=== PATIENT | female | born 1995 | race Two or more races ===

== ENCOUNTER 2022-05-02 19:18 | Emergency (ER) | payer MEDICAID ==
[~2022-05-02] VITALS: Ht 157.5 cm; Wt 66.0 kg
[2022-05-02 20:05] LABS: Urine Bacteria NONE SEEN /hpf (None Seen); Urine Blood Negative /uL (Negative); Urine Specific Gravity 1.005 (1.001-1.035); Urine WBC 1 /hpf (0 - 5)
[2022-05-02 20:42] LABS: Albumin 3.8 g/dL (3.4-5.0); BUN/Creatinine Ratio 6.5; Calcium 9.1 mg/dL (8.5-10.1); Potassium 3.6 mmol/L (3.5-5.1)
[2022-05-02 20:45] LABS: Bilirubin, Total 0.4 mg/dL (0.2-1.0)
[2022-05-02 21:10] LABS: Basophils # (auto) 0 10 ^3/uL (0-0.2); Basophils % (auto) 0.2 % (0.0-2.0); Eosinophils # (auto) 0.1 10 ^3/uL (0-0.8); Eosinophils % (auto) 0.5 % (0.0-7.0); Hematocrit 40.3 % (36.0-46.0); Hemoglobin 13.6 g/dL (12.2-16.2); Lymphocytes # (auto) 1.3 10 ^3/uL (0.4-5.4); Mean Corpuscular Hemoglobin 30.4 pg (28.0-32.0); Mean Corpuscular Hgb Conc. 33.7 g/dL (32.0-36.0); Mean Corpuscular Volume 90.1 fL (80.0-100.0); Monocytes # (auto) 0.6 10 ^3/uL (0-1.3); Monocytes % (auto) 5.9 % (0.0-12.0); Neutrophils # (auto) 8.3 10 ^3/uL (1.6-8.6); Neutrophils % (auto) 80.4 % (37.0-80.0); Nucleated Red Blood Cells % 0.1 %; Red Blood Cells 4.47 10^6/uL (4.0-5.20); Red Cell Distribution Width 12.8 % (11.8-14.3); White Blood Cell 10.4 10^3/uL (4.4-10.8)
[2022-05-03] MEDS ORDERED: NITR-87 PO (06:09)
[2022-05-03] MEDS ORDERED: PREN-96 PO (06:09)
[2022-05-03 07:23] VITALS: BP 106/78
== END 2022-05-03 07:28 | disposition home or self-care (01) ==
LOC: ER 19:18
DX: O23.41 Unspecified infection of urinary tract in pregnancy, first trimester (principal); O21.8 Other vomiting complicating pregnancy; N39.0 Urinary tract infection, site not specified; Z3A.01 Less than 8 weeks gestation of pregnancy
CPT/HCPCS: 36415; 76801; 76817; 80053; 81001; 81025; 83690; 84702; 85025

== ENCOUNTER 2024-01-30 17:26 | Observation (INO) | payer MEDICAID, OTHER ==
[~2024-01-30] VITALS: Ht 162.6 cm; Wt 77.6 kg
[~2024-01-30 17:26] MED LIST: NITR-87 PO; PREN-96 PO
[2024-01-30] MEDS: TERBUTALINE SULFATE 1 MG/ML 1ML VIAL SC ONE (18:11)
[2024-01-30] MEDS: TERBUTALINE SULFATE 1 MG/ML 1ML VIAL SC SCH (18:13)
[2024-01-30 18:16] LABS: Urine Bacteria None Seen /hpf (None Seen)
[2024-01-30 18:21] LABS: Basophils # (auto) 0 10 ^3/uL (0-0.2); Basophils % (auto) 0.3 % (0.0-2.0); Eosinophils # (auto) 0.3 10 ^3/uL (0-0.8); Eosinophils % (auto) 3.1 % (0.0-7.0); Hematocrit 34.8 % (36.0-46.0); Lymphocytes # (auto) 2.4 10 ^3/uL (0.4-5.4); Lymphocytes % (auto) 26.2 % (10.0-50.0); Mean Corpuscular Hemoglobin 31.8 pg (28.0-32.0); Mean Corpuscular Hgb Conc. 34.5 g/dL (32.0-36.0); Monocytes # (auto) 0.7 10 ^3/uL (0-1.3); Monocytes % (auto) 7.2 % (0.0-12.0); Neutrophils # (auto) 5.8 10 ^3/uL (1.6-8.6); Neutrophils % (auto) 63.2 % (37.0-80.0); Platelet Count (auto) 242 10^3/uL (140-450); Red Blood Cells 3.79 10^6/uL (4.0-5.20); Red Cell Distribution Width 15.1 % (11.8-14.3); White Blood Cell 9.2 10^3/uL (4.4-10.8)
[2024-01-30 18:27] LABS: Vaginal Trichomonas Not Present
[2024-01-30 18:28] LABS: Vaginal Bacteria None Seen; Vaginal Clue Cells None Seen; Vaginal Epithelial Cells Rare
[2024-01-30] MEDS ORDERED: ONDANSETRON HCL 4 MG/2 ML VIAL IV PRN (18:30)
--- NOTE | 2024-01-30 18:31 | DVH ---
LIMITED OB ULTRASOUND > 14 WKS: HISTORY: No Care TECHNIQUE: Multiple real-time grayscale images of the gravid uterus with duplex Doppler color flow an d M-mode spectral analysis. FINDINGS: IUP single live fetus at 36 weeks 2 days based on composite averages of the BPD, head circumference, abdominal circumference and femur length Estimated weight 2768 grams heart rate 169 beats per minute JOVANNI 15 cm Cervix was not visualized on this study. presentation is cephalic. Placenta is posterior. IMPRESSION: IUP single live fetus at 36 weeks 2 days AUA corresponding to an TANIYA of February 25, 2024
[2024-01-30 18:34] LABS: Urine Blood Negative /uL (Negative); Urine Clarity Clear (Clear); Urine Color Light-Yellow (Yellow); Urine Mucus FEW (None Seen); Urine Protein, UAD 1+ (Negative); Urine Specific Gravity 1.011 (1.001-1.035); Urine Urobilinogen Normal (Negative); Urine WBC 2 /hpf (0 - 5); Urine pH 7.5 (5.0-9.0)
[2024-01-30 18:38] LABS: Alanine Aminotransferase 15 U/L (7-40); Albumin 3.5 g/dL (3.2-4.8); Alkaline Phosphatase 159 U/L (46-116); Anion Gap 6 (5-15); Aspartate Aminotransferase 19 U/L (13-40); Calcium 8.9 mg/dL (8.7-10.4); Carbon Dioxide 24 mmol/L (20-31); Chloride 108 mmol/L (98-107); Glucose 97 mg/dL (74-106); Potassium 3.4 mmol/L (3.5-5.1); Sodium 138 mmol/L (136-145); Uric Acid 4.2 mg/dL (3.1-7.8)
[2024-01-30 18:39] LABS: Bilirubin, Total 0.6 mg/dL (0.2-1.0)
[2024-01-30 18:42] LABS: BUN/Creatinine Ratio 13.2 (10.0-20.0); Blood Urea Nitrogen < 5 mg/dL (9-23)
[2024-01-30] MEDS: ceFAZolin 2 GM/D5W50ml 50 ML IV ONE (18:44)
[2024-01-30] MEDS: LACTATED RINGER'S 1,000 ML IV SCH (18:53)
[2024-01-30 19:00] LABS: INR 0.94 (0.9-1.15); Partial Thromboplastin Time 25.3 SEC (24.5-34.5)
[2024-01-30] MEDS: LACTATED RINGER'S 1,000 ML IV ONE (19:00)
[2024-01-30 19:08] LABS: Creatinine, Urine 45.1 mg/dL (30.0-125.0); Urine Protein/Creatinine Ratio 1.57
[2024-01-30 19:09] LABS: Amphetamine Screen, Urine Neg (NEGATIVE); Barbiturate Scree,Urine Neg (NEGATIVE); Benzodiazephine Screen, Urine Neg (NEGATIVE); Cocaine Screen, Urine Neg (NEGATIVE)
[2024-01-30 19:10] LABS: Cannabinoid Screen, Urine Neg (NEGATIVE); Opiate Scree,Urine Neg (NEGATIVE); Phencyclidine Screen, Urine Neg (NEGATIVE)
--- NOTE | 2024-01-30 20:34 | DVH ---
INDICATION: Pain. TECHNIQUE: Multiple real-time sonographic images of the abdomen were obtained. COMPARISON: None FINDINGS: There is increased echogenicity to the hepatic parenchyma suggesting steatosis.. The liver measures 16.73 cm cm. No intrahepatic biliary ductal dilatation is noted. The gallbladder wall measures 0.19 cm and is unremarkable. Stones are noted in the gallbladder. Th e common duct is not visible.. No pericholecystic fluid is noted. A negative ultrasound mendoza's sign was elicited. The right kidney measures 11.95 cm. No hydronephrosis. The pancreas is not well visualized due to obscuration from bowel gas. IMPRESSION: 1. Cholelithiasis. No abnormal thickening of the gallbladder wall. Negative ultrasound Mendoza's sign was elicited. Common bile duct was not visualized. 2. Liver measures 16.73 cm with ultrasound findings suggesting steatosis.
[2024-01-31 06:07] LABS: RPR Non Reactive (Non Reactive)
[2024-01-31 08:06] LABS: Rubella Antibodies, IgG <0.90 index (Immune >0.99)
--- NOTE | 2024-01-31 08:27 | DVHDS2 ---
Physician Discharge Progress N Final Diagnosis: Cholelithiasis in Operations or Procedures: Operations or Procedures NST,SONO Other Interventions Other Interventions INC ACTIGALL TO 3 TIMES PER DAY AND REPEAT LABS IN 4 DAYS Condition on Discharge: Good Disposition: Home Discharge Instructions: Diet: Regular Activity: No Restrictions, As Tolerated Follow Up/Referral: Follow up with primary OB[facility]. Medications: Take all prescribed medications as directed. Follow Up Care: Specialist: WED Discharge Statement: "Patient was advised to return to the ER or call 911 if any headaches, dizziness, shortness of breath, chest pain, abdominal pain, bleeding, fevers, or worsening of medical condition. Patient was counseled about treatment plan, medications, possible side effects, patientverbalized understanding. All questions were answered to the best of my ability. This discharge took greater then 30 minutes in planning, reviewing documentation, counseling the patient, and discussing with other team members." REY GARCIA DO Jan 31, 2024 08:27
[2024-01-31 13:07] LABS: Chlamydia Trachomatis, NAA Negative (Negative); Neisseria gonorrhoeae, NAA Negative (Negative)
[2024-02-02 13:07] LABS: Treponema Pallidum Ab LC Non Reactive (Non Reactive)
== END 2024-01-30 22:26 | disposition home or self-care (01) ==
LOC: LDRP 17:26
PROVIDERS: ADMIT Obstetrics & Gynecology; ATTEND Obstetrics & Gynecology
DX: O99.613 Diseases of the digestive system complicating pregnancy, third trimester (principal); K80.20 Calculus of gallbladder without cholecystitis without obstruction; O62.9 Abnormality of forces of labor, unspecified; O26.893 Other specified pregnancy related conditions, third trimester; N89.8 Other specified noninflammatory disorders of vagina; O99.891 Other specified diseases and conditions complicating pregnancy; M54.9 Dorsalgia, unspecified; Z3A.36 36 weeks gestation of pregnancy
CPT/HCPCS: 36415; 59025; 76705; 76805; 80053; 80307; 81001; 81002; 82570; 84156; 84550; 85025; 85610; 85730; 86592; 86703; 86762; 86780; 86803; 86850; 86900; 86901; 87210; 87340; 87491; 87591; 94762; 96361; 96365; 96372; G0378; J0690; J3105; 96360